=== PATIENT | female | born 1965 | race Hispanic/Latino ===

== ENCOUNTER 2016-04-29 14:04 | Emergency (ER) | payer OTHER ==
[~2016-04-29] VITALS: Ht 152.4 cm; Wt 63.5 kg
[~2016-04-29 14:04] MED LIST: ACET325T38 PO; CIPR-225 PO; CYCL10TA9 PO; DOCU100C37 PO; HYDR-3812 PO; HYDR-3816 PO; IBUP-1773 PO; IBUP800T26 PO; METR500T PO; PHEN-640 PO; SIME80TA16 PO
--- OUTSIDE RECORDS SUMMARY | 2016-04-29 14:10 | XMS REPORT | Continuity of Care Document ---
Author Author [facility] Organization [facility] Address Unknown Phone Unavailable Care Team Providers Care Medical Authorization Specialist Name Role Phone NO, LOCAL PHYSICIAN PCP Unavailable Insurance Providers Payer Name Policy Number Subscriber Name Relationship Self Pay Pending Bisi Apprv Anay Lau 18 Self / Same As Patient Advance Directives Directive Response Recorded Date/Time Advance Directives No 11/24/15 6:25am Health Care Power of Desk Interviewer No 11/24/15 6:25am Organ Donor Yes 11/24/15 6:25am Resuscitation Status Full Code 11/24/15 6:25am Problems Active Problems Medical Problem Onset Date Status Bacterial vaginosis Unknown Acute Cholelithiasis Unknown Acute Epigastric abdominal pain Unknown Acute Neck strain Unknown Acute Ovarian cyst Unknown Acute Pelvic pain Unknown Acute Urinary tract infection Unknown Acute Medications Current Home Medications Medication Dose Units Route Directions Days/Qty Instructions Start Date Ibuprofen 600 Mg 600 Mg Oral Every 6 Hours as needed for Pain 80 11/23 Hydrocodone/Acetaminophen 1 Each 1-2 Ea Oral Every 6 Hours as needed for Pain 50 11/24/15 Docusate Sodium 100 Mg 100 Mg Oral Twice A Day as needed for Constipation 40 11/24/15 Simethicone 80 Mg 40 Mg Oral Three Times A Day as needed for Indigestion 40 11/24/15 Past Home Medications Medication Directions Ordered Status Cyclobenzaprine Hcl (Flexeril) 10 Mg Tablet, 1 Each Oral Every 8HRS as needed for Spasms 06/06/14 Discontinued Ibuprofen (Motrin) 800 Mg Tablet, 800 Mg Oral Every 8 Hours as needed for Pain 06/06/14 Discontinued Acetaminophen 325 Mg Tablet, 325 Mg Oral As Needed 07/17/15 Discontinued Metronidazole 500 Mg Tablet, 500 Mg Oral Twice A Day 07/17/15 Discontinued Ciprofloxacin Hcl 500 Mg Tablet, 500 Mg Oral Twice A Day 07/17/15 Discontinued Hydrocodone/Acetaminophen 1 Each Tablet, 1 Each Oral Every 4HRS as needed for Pain 07/17/15 Discontinued Phenazopyridine Hcl 200 Mg Tablet, 1 Tab Oral Three Times A Day 07/17/15 Discontinued Social History Social History Problem Response Recorded Date/Time Alcohol Use Denies Use 07/17/2015 9:15am Recreational Drug Use No 07/17/2015 9:15am Recent Foreign Travel No 11/24/2015 6:25am Recent Infectious Disease Exposure No 11/24/2015 6:25am Smoking Status Never a Smoker 11/24/2015 6:25am Recent Hopitalizations No 11/24/2015 6:25am Query Response Start Date Stop Date Smoking Status Never a Smoker Hospital Discharge Instructions Patient Instructions Physician Instructions New, Converted or Re-Newed RX: RX on Chart Additional Follow Up: Yes Orders/Referrals Dr. June 7-10 days, and 8 weeks Activity: Activity as Tolerated Driving Instructions: No Driving for 1 Week NO SMOKING: NO SMOKING Nothing Inside Vagina: No Douching, No [place], No Tampons Discharge Diet: No Restrictions Symptoms to Report to : Bleeding Excessive, Pain Increased, Fever Over 101 Degrees F, Vaginal Bleeding Increase, Questions/Concerns For Any Problems or Questions: Contact Your Physician Infection Signs and Symptoms: Increased Redness, Foul Odor of Wound, Increased Drainage, Skin Itchy or Has a Rash, Increased Swelling, Temperature Above 101 F Operative Area Clean and Dry: Keep Incision Clean/Dry Stitches/[place]/Dermabond: Dermabond, Care of Stitches Bathing Instructions: Shower Plan of Care Discharge Date 11/25/15 11:15am Instructions/Education Provided Robot Assisted Laparoscopic Hysterectomy (DC) Prescriptions See Medication Section Functional Status Query Response Date Recorded Patient Orientation Person Place Time Situation Normal For Age November 25, 2015 12:30pm Comprehension Ability Understands Concepts November 25, 2015 9:00am Allergies, Adverse Reactions, Alerts No known allergies. Immunizations Name Given Type FLU TRIvalent 5 years - Adult 11/25/15 Administered Vital Signs Acute Vital Signs Vital Response Date/Time Temperature (Fahrenheit) 98.3 degrees F (97.6 - 99.5) 11/25/2015 11:15am Temperature (Calculated Celsius) 36.94997 degrees C (36.4 - 37.5) 11/25/2015 10:40am Temperature Source Tympanic 11/25/2015 11:15am Pulse Rate (adult) 52 bpm (60 - 90) 11/25/2015 11:15am Respiratory Rate 20 bpm (12 - 24) 11/25/2015 11:15am O2 Sat by Pulse Oximetry 98 % (88 - 100) 11/25/2015 11:15am Blood Pressure 103/60 mm Hg 11/25/2015 11:15am Blood Pressure Mean 74 mm Hg 11/25/2015 8:20am Pain Numeric Pain Scale 4 11/25/2015 11:15am Pain Intensity 1 11/25/2015 6:16am Height (Feet) 4 feet 11/24/2015 6:25am Height (Inches) 11.00 inches 11/24/2015 6:25am Height (Calculated Centimeters) 149.407761 cm 11/24/2015 6:25am Weight (Pounds) 144 pounds 11/24/2015 6:25am Weight (Ounces) 2.0 oz 11/24/2015 6:25am Weight (Calculated Grams) 57035.00 gm 11/24/2015 6:25am Weight (Calculated Kilograms) 65.467964 kilograms 11/24/2015 6:25am Calculated BMI 29.1 11/24/2015 6:25am Results Laboratory Results Test Name Result Units Flags Reference Collection Date/Time Result Date/ Time Comments White Blood Count 6.2 10^3/uL 4.3-11.0 11/24/2015 6:45am 11/24/2015 7: 01am Red Blood Count 4.74 10^6/uL 4.35-5.85 11/24/2015 6:45am 11/24/2015 7: 01am Hemoglobin 14.4 G/DL 11.5-16.0 11/24/2015 6:45am 11/24/2015 7:01am Hematocrit 41 % 35-52 11/24/2015 6:45am 11/24/2015 7:01am Mean Corpuscular Volume 87 FL 80-99 11/24/2015 6:45am 11/24/2015 7: 01am Mean Corpuscular Hemoglobin 30 PG 25-34 11/24/2015 6:45am 11/24/2015 7: 01am Mean Corpuscular Hemoglobin Concent 35 G/DL 32-36 11/24/2015 6:45am 07/2015 7:01am Red Cell Distribution Width 13.7 % 10.0-14.5 11/24/2015 6:45am 2015 7:01am Platelet Count 284 10^3/uL 130-400 11/24/2015 6:45am 11/24/2015 7:01am Mean Platelet Volume 9.9 FL 7.4-10.4 11/24/2015 6:45am 11/24/2015 7: 01am Neutrophils (%) (Auto) 48 % 42-75 11/24/2015 6:45am 11/24/2015 7:01am Lymphocytes (%) (Auto) 39 % 12-44 11/24/2015 6:45am 11/24/2015 7:01am Monocytes (%) (Auto) 9 % 0-12 11/24/2015 6:45am 11/24/2015 7:01am Eosinophils (%) (Auto) 4 % 0-10 11/24/2015 6:45am 11/24/2015 7:01am Basophils (%) (Auto) 1 % 0-10 11/24/2015 6:45am 11/24/2015 7:01am Neutrophils # (Auto) 3.0 X 10^3 1.8-7.8 11/24/2015 6:45am 11/24/2015 7: 01am Lymphocytes # (Auto) 2.4 X 10^3 1.0-4.0 11/24/2015 6:45am 11/24/2015 7: 01am Monocytes # (Auto) 0.6 X 10^3 0.0-1.0 11/24/2015 6:45am 11/24/2015 7: 01am Eosinophils # (Auto) 0.2 10^3/uL 0.0-0.3 11/24/2015 6:45am 11/24/2015 7 :01am Basophils # (Auto) 0.0 10^3/uL 0.0-0.1 11/24/2015 6:45am 11/24/2015 7: 01am Pending Laboratory Results Test Name Collection Date/Time Pending Microbiology Results Procedure Source Collection Date/Time Procedures Procedure Status Date Provider(s) Robot-assisted hysterectomy Completed 11/24/15 RAUL JUNE DO Encounters Encounter Location Arrival/Admit Date Discharge/Depart Date Attending Provider Registered [facility] 11/24/15 6:32am RAUL JUNE DO Departed Clinic [facility] 11/18/15 9:21am 11/18/15 10: 54am RAUL JUNE DO
[2016-04-29] MEDS ORDERED: LACTATED RINGERS 1,000 ML IV SCH (14:15)
[2016-04-29] MEDS ORDERED: fentaNYL INJECTION 100 MCG/2 ML AMP IVP ONE (14:15)
[2016-04-29] MEDS ORDERED: ONDANSETRON 4 MG/2 ML (SDV) Z0FRAN IVP ONE (14:15)
--- NOTE | 2016-04-29 14:16 | ED Cardiac General ---
History of Present Illness General Chief Complaint: Chest Pain Stated Complaint: CP Source: patient Exam Limitations: no limitations History of Present Illness Time seen by provider: 14:15 Initial Comments To ER with epigastric abdominal pain constant since yesterday. She has nausea but no vomiting. She has pain that is worsened with movement and deep breathing. No appetite and her last food intake was yesterday. Severity: moderate Activities at Onset: none NTG SL ADMISSIONS SPECIALIST: No ASA po ADMISSIONS SPECIALIST: No Associated Systoms: No Fever/Chills, Nausea/Vomiting Allergies and Home Medications Allergies Coded Allergies: No Known Drug Allergies (Unverified , 11/18/15) Home Medications Docusate Sodium 100 Mg Capsule #40 100 MG PO BID PRN PRN CONSTIPATION Prescribed by: RAUL CRESPO on 11/24/15 0956 Ibuprofen 600 Mg Tablet #80 600 MG PO Q6H PRN PRN PAIN Prescribed by: RAUL CRESPO on 11/24/15 0956 Ondansetron 8 Mg Tab.rapdis #10 8 MG PO Q6H PRN PRN NAUSEA/VOMITING Prescribed by: STUART GALEANO on 04/29/16 1459 Oxycodone HCl/Acetaminophen 1 Each Tablet #20 1 EACH PO Q6H PRN PRN PAIN Prescribed by: STUART GALEANO on 04/29/16 1459 Simethicone 80 Mg Tab.chew #40 40 MG PO TID PRN PRN INDIGESTION Prescribed by: RAUL CRESPO on 11/24/15 0956 Review of Systems Constitutional: see HPINo chills EENTM: No Symptoms Reported Respiratory: No Symptoms Reported Cardiovascular: No Symptoms Reported Gastrointestinal: See HPI Abdominal Pain NauseaDenies Vomiting Genitourinary: No Symptoms Reported Musculoskeletal: no symptoms reported Skin: no symptoms reported Psychiatric/Neurological: No Symptoms Reported Endocrine: No Symptoms Reported Hematologic/Lymphatic: No Symptoms Reported Past Acodbxr-Uzkvmv-Rejsmx Hx Patient Social History Recent Hopitalizations: No Seasonal Allergies Seasonal Allergies: No Surgeries HX Surgeries: Yes (HAD TUBAL LIGATION REVERSED D/T PAIN) Surgeries: Section, Hysterectomy Respiratory Hx Respiratory Disorders: No Cardiovascular Hx Cardiac Disorders: No Neurological Hx Neurological Disorders: No Reproductive System Hx Reproductive Disorders: Yes (AUB ) Female Reproductive Disorders: Ovarian Cyst MANAGER FILM History: Hysterectomy Genitourinary Hx Genitourinary Disorders: Yes Genitourinary Disorders: Bladder Infection Gastrointestinal Hx Gastrointestinal Disorders: Yes (GALLBLADDER STONE) Gastrointestinal Disorders: Chronic Constipation, Gall Bladder Disease Musculoskeletal Hx Musculoskeletal Disorders: No Endocrine Hx Endocrine Disorders: No HEENT HX ENT Disorders: No Loss of Vision: Denies Hearing Impairment: Denies Cancer Hx Cancer: No Psychosocial Hx Psychiatric Problems: No Integumentary HX Skin/Integumentary Disorder: No Blood Transfusions Hx Blood Disorders: Yes Adverse Reaction to a Blood Tr: No (N/A) Family Medical History Significant Family History: No Pertinent Family Hx Physical Exam Vital Signs Vital Sign - Last 12Hours 04/29/16 14:09 Temp 98.2 Pulse 60 Resp 18 B/P 185/88 Pulse Ox 97 O2 Delivery Room Air Capillary Refill : General Appearance: No Apparent Distress WD/WN HEENT: PERRL/EOMI TMs Normal Respiratory: No Accessory Muscle Use No Respiratory Distress Cardiovascular: Regular Rate, Rhythm Normal Peripheral Pulses Gastrointestinal: Normal Bowel Sounds Soft Tenderness (epigastric) Extremity: Normal Capillary Refill Normal Inspection Neurologic/Psychiatric: Alert Oriented x3 No Motor/Sensory Deficits Skin: Normal Color Warm/Dry Progress/Results/Core Measures Results/Orders Lab Results Laboratory Tests Test 04/29/16 14:22 Range/Units Alanine Aminotransferase (ALT/SGPT) 137 H 0-55 U/L Albumin 4.3 3.2-4.5 G/DL Alkaline Phosphatase 124 40-136 U/L Amylase Level 54 25-125 U/L Anion Gap 10 5-14 MMOL/L Aspartate Amino Transf (AST/SGOT) 86 H 5-34 U/L BUN/Creatinine Ratio 15 Basophils # (Auto) 0.1 0.0-0.1 10^3/uL Basophils (%) (Auto) 1 0-10 % Blood Urea Nitrogen 10 7-18 MG/DL Calcium Level 9.6 8.5-10.1 MG/DL Carbon Dioxide Level 26 21-32 MMOL/L Chloride Level 105 98-107 MMOL/L Creatinine 0.68 0.60-1.30 MG/DL Eosinophils # (Auto) 0.2 0.0-0.3 10^3/uL Eosinophils (%) (Auto) 3 0-10 % Estimat Glomerular Filtration Rate > 60 Glucose Level 192 H 70-105 MG/DL Hematocrit 40 35-52 % Hemoglobin 13.9 11.5-16.0 G/DL Lipase 24 8-78 U/L Lymphocytes # (Auto) 2.6 1.0-4.0 X 10^3 Lymphocytes (%) (Auto) 42 12-44 % Mean Corpuscular Hemoglobin 30 25-34 PG Mean Corpuscular Hemoglobin Concent 35 32-36 G/DL Mean Corpuscular Volume 86 80-99 FL Mean Platelet Volume 10.2 7.4-10.4 FL Monocytes # (Auto) 0.5 0.0-1.0 X 10^3 Monocytes (%) (Auto) 8 0-12 % Neutrophils # (Auto) 2.9 1.8-7.8 X 10^3 Neutrophils (%) (Auto) 46 42-75 % Platelet Count 294 130-400 10^3/uL Potassium Level 3.7 3.6-5.0 MMOL/L Red Blood Count 4.62 4.35-5.85 10^6/uL Red Cell Distribution Width 12.4 10.0-14.5 % Sodium Level 141 135-145 MMOL/L Total Bilirubin 1.2 H 0.1-1.0 MG/DL Total Protein 7.5 6.4-8.2 G/DL Troponin I < 0.30 <0.30 NG/ML White Blood Count 6.2 4.3-11.0 10^3/uL My Orders Orders-STUART GALEANO LINING IRONER Cbc With Automated Diff (04/29/16 14:13) Comprehensive Metabolic Panel (04/29/16 14:13) Lipase (04/29/16 14:13) Amylase (04/29/16 14:13) Ua Culture If Indicated (04/29/16 14:13) Saline Lock/Iv-Start (04/29/16 14:13) Fentanyl Injection (Sublimaze Injection (04/29/16 14:15) Ekg Tracing (04/29/16 14:13) Continuous Ekg Monitoring (04/29/16 14:13) Troponin I (04/29/16 14:13) Chest Pa/Lat (2 View) (04/29/16 14:13) Us Gallbladder [id number] (04/29/16 14:13) Lactated Ringers (Lr 1000 Ml Iv Solution (04/29/16 14:15) Ondansetron Injection (Zofran Injectio (04/29/16 14:15) Ketorolac Injection (Toradol Injection) (04/29/16 14:45) Hydromorphone Injection (Dilaudid Inject (04/29/16 15:00) Medications Given in ED Current Medications Medications Dose Ordered Sig/William Route Start Time Stop Time Status Last Admin Dose Admin Fentanyl Citrate 50 mcg ONCE ONCE IVP 04/29/16 14:15 04/29/16 14:16 DC 04/29/16 14:20 50 MCG Ketorolac Tromethamine 30 mg ONCE ONCE IVP 04/29/16 14:45 04/29/16 14:46 DC 04/29/16 15:08 30 MG Ondansetron HCl 4 mg ONCE ONCE IVP 04/29/16 14:15 04/29/16 14:16 DC 04/29/16 14:20 4 MG Vital Signs/I&O Vital Sign - Last 12Hours 04/29/16 14:09 Temp 98.2 Pulse 60 Resp 18 B/P 185/88 Pulse Ox 97 O2 Delivery Room Air Departure Communication Progress Notes 1457-I discussed the case with Dr. Garcia given the absence of white count, absence of fevers, absence of wall thickening and absence of pericholecystic fluid but with symptomatic cholelithiasis, pain medication nausea medication and follow-up in the outpatient setting will be recommended. Using the phone insurance salesperson line I discussed these plan with the patient and she agrees. Impression Impression: Primary Impression: Symptomatic cholelithiasis Disposition: 01 HOME, SELF-CARE Condition: Stable Departure-Patient Inst. Decision time for Depature: 14:57 Referrals: [facility] (PCP/Family) Primary Care Physician BABATUNDE GARCIA MD Patient Instructions: Gallstones, POSS GALLSTONE-W/BILIARY COLIC Add. Discharge Instructions: 1. Low fat diet with no milk products 2. Pain medication and nausea medication as needed 3. Return to ER for any fevers or worsening pain 4. Call Dr. Garcia tomorrow morning to make an appointment to be seen All discharge instructions reviewed with patient and/or family. Voiced understanding. Scripts Ondansetron (Zofran Odt)8 Mg Tab.rapdis8 Mg PO Q6H PRN NAUSEA/VOMITING #10 TAB Prov:STUART GALEANO LINING IRONER 04/29/16 Oxycodone HCl/Acetaminophen (Percocet 5-325 mg Tablet)1 Each Tablet1 Each PO Q6H PRN PAIN #20 TAB Prov:STUART GALEANO APRN 04/29/16 STUART GALEANO APRN Apr 29, 2016 14:16
[2016-04-29 14:27] LABS: BASOPHILS # (AUTO) 0.1 10^3/uL (0.0-0.1); BASOPHILS % (AUTO) 1 % (0-10); EOSINOPHILS # (AUTO) 0.2 10^3/uL (0.0-0.3); EOSINOPHILS % (AUTO) 3 % (0-10); LYMPHOCYTES # (AUTO) 2.6 X 10^3 (1.0-4.0); LYMPHOCYTES % (AUTO) 42 % (12-44); MEAN CORPUSCULAR HEMOGLOBIN 30 PG (25-34); MEAN CORPUSCULAR HGB CONC 35 G/DL (32-36); MEAN CORPUSCULAR VOLUME 86 FL (80-99); MEAN PLATELET VOLUME 10.2 FL (7.4-10.4); MONOCYTES # (AUTO) 0.5 X 10^3 (0.0-1.0); MONOCYTES % (AUTO) 8 % (0-12); NEUTROPHILS # (AUTO) 2.9 X 10^3 (1.8-7.8); NEUTROPHILS % (AUTO) 46 % (42-75); PLATELET COUNT 294 10^3/uL (130-400); RED BLOOD COUNT 4.62 10^6/uL (4.35-5.85); RED CELL DISTRIBUTION WIDTH 12.4 % (10.0-14.5); WHITE BLOOD COUNT 6.2 10^3/uL (4.3-11.0)
[2016-04-29] MEDS ORDERED: KETOROLAC 30 MG/ML VIAL IVP ONE (14:45)
[2016-04-29 14:47] LABS: ALANINE AMINOTRANSFERASE 137 U/L (0-55); ALBUMIN 4.3 G/DL (3.2-4.5); AMYLASE 54 U/L (25-125); ANION GAP 10 MMOL/L (5-14); ASPARTATE AMINO TRANSFERASE 86 U/L (5-34); BILIRUBIN,TOTAL 1.2 MG/DL (0.1-1.0); BLOOD UREA NITROGEN 10 MG/DL (7-18); BUN/CREATININE RATIO 15; CALCIUM 9.6 MG/DL (8.5-10.1); CARBON DIOXIDE 26 MMOL/L (21-32); CHLORIDE 105 MMOL/L (98-107); CREATININE SERUM 0.68 MG/DL (0.60-1.30); GFR ESTIMATED > 60; GLUCOSE 192 MG/DL (70-105); LIPASE 24 U/L (8-78); POTASSIUM 3.7 MMOL/L (3.6-5.0); SODIUM 141 MMOL/L (135-145); TOTAL PROTEIN 7.5 G/DL (6.4-8.2)
[2016-04-29 14:53] LABS: TROPONIN I < 0.30 NG/ML (<0.30)
[2016-04-29] MEDS ORDERED: ONDA8TAB9 PO (14:59)
[2016-04-29] MEDS ORDERED: OXYC-197 PO (14:59)
[2016-04-29] MEDS ORDERED: HYDROmorphone (DILAUDID) 2 MG/ML VIAL IVP PRN (15:00)
--- NOTE | 2016-04-29 15:16 | Diagnostic Imaging Report ---
INDICATION: Mid chest pain. EXAMINATION: Two-view chest, 04/29/2016. COMPARISONS: None. FINDINGS: The cardiomediastinal silhouette is unremarkable. The pulmonary vasculature is within normal limits. The lungs and pleural spaces are clear. IMPRESSION: No evidence of an acute cardiopulmonary process. Dictated by: Dictated on workstation # [id number]
[2016-04-29 15:25] VITALS: BP 164/79
--- NOTE | 2016-04-29 15:43 | Diagnostic Imaging Report ---
PROCEDURE: US Gallbladder. INDICATION: Right upper quadrant pain with chest pain. TECHNIQUE: Multiple grayscale sonographic images were obtained of the right upper quadrant of the abdomen. CORRELATION STUDY: None. FINDINGS: LIVER: The liver measures 18 cm. Diffusely increased echogenicity. GALLBLADDER: Multiple stones are present which appear to be mobile. The posterior wall is shadowed and obscured. Visualized wall does not appear to be abnormally thickened and there is no pericholecystic fluid. COMMON BILE DUCT: Obscured and not visualized. RIGHT KIDNEY: Measures 12 cm. No hydronephrosis. PANCREAS: Obscured by bowel gas. OTHER: None. IMPRESSION: 1. Multiple gallstones. Common bile duct unable to be visualized. Dictated by: Dictated on workstation # [id number]
== END 2016-04-29 15:27 | disposition home or self-care (01) ==
LOC: EDUNIT# 14:04 → ER 14:05
DX: K80.20 Calculus of gallbladder without cholecystitis without obstruction (principal)
CPT/HCPCS: 36415; 71020; 76705; 80053; 82150; 83690; 84484; 85025; 93005; 96361; 96374; 96375

== ENCOUNTER 2016-05-24 12:30 | Outpatient (CLI) | payer OTHER ==
[~2016-05-24] VITALS: Ht 152.4 cm; Wt 64.0 kg
[~2016-05-24 12:30] MED LIST changes: +ONDA8TAB9 PO; +OXYC-197 PO
[2016-05-24 12:50] VITALS: BP 142/77
== END 2016-05-24 13:00 | disposition home or self-care (01) ==
LOC: PREOP 12:30
PROVIDERS: ATTEND Surgery
DX: Z01.818 Encounter for other preprocedural examination (principal); K80.20 Calculus of gallbladder without cholecystitis without obstruction
CPT/HCPCS: 87081

== ENCOUNTER 2016-06-11 06:58 | Day surgery (SDC) | payer OTHER ==
[~2016-06-11] VITALS: Ht 152.4 cm; Wt 64.0 kg
[2016-06-11] MEDS ORDERED: ceFAZolin 1 GM/NS 50 ML IVPB IV ONE ×2 (07:30)
[2016-06-11] MEDS ORDERED: CATHETER FLUSH 10 ML SYR IV PRN (07:30)
[2016-06-11 07:46] VITALS: BP 140/82
[2016-06-11] MEDS ORDERED: SEVOFLURANE (ULTANE) 15 ML INHAL SOLN ONE (07:58)
[2016-06-11] MEDS ORDERED: MIDAZOLAM 2 MG/2 ML (VERSED) VIAL ONE (07:58)
[2016-06-11] MEDS ORDERED: LIDOCAINE PF 2% 10 ML (XYLOCAINE) AMP ONE (07:58)
[2016-06-11] MEDS ORDERED: proPOfol 200 MG/20 ML (DIPRIVAN) VIAL IV ONE (07:58)
[2016-06-11] MEDS ORDERED: fentaNYL INJECTION 250 MCG/5 ML AMP ONE (07:58)
[2016-06-11] MEDS ORDERED: ONDANSETRON 4 MG/2 ML (SDV) Z0FRAN ONE ×2 (07:59→09:47)
[2016-06-11] MEDS ORDERED: FLUMAZENIL (ROMAZICON) 0.1 MG/ML 5 ML VIAL ONE (07:59)
[2016-06-11] MEDS ORDERED: ROCURONIUM 50 MG/5 ML (ZEMURON) VIAL IV ONE (08:00)
[2016-06-11] MEDS: LACTATED RINGERS 1,000 ML IV PRN ×2 (08:30→10:24)
--- NOTE | 2016-06-11 08:48 | Progress Note-Pre Operative ---
Pre-Operative Progress Note H&P Reviewed The H&P was reviewed, patient examined and no changes noted. Date H&P Reviewed: Jun 11, 2016 Time H&P Reviewed: 08:48 Pre-Operative Diagnosis: symptomatic cholelithiasis CRESCENCIO CHOW DO Jun 11, 2016 8:48 am
[2016-06-11] MEDS ORDERED: LIDOCAINE 1% INJ 20 ML (XYLOCAINE) VIAL ONE (08:58)
[2016-06-11] MEDS ORDERED: BUPIVACAINE 0.5% 30 ML (SENSORCAINE) VIAL ONE (08:58)
[2016-06-11] MEDS ORDERED: DOCU-143 PO (09:47)
[2016-06-11] MEDS ORDERED: HYDR-3812 PO (09:47)
[2016-06-11] MEDS ORDERED: NEOSTIGMINE (BLOXIVERZ ) 1 MG/1ML 10 ML VIAL ONE (09:47)
[2016-06-11] MEDS ORDERED: GLYCOPYRROLATE 0.2 MG/ML (ROBINUL) 2 ML VIAL ONE (09:47)
[2016-06-11] MEDS ORDERED: DEXAMETHASONE PF 10 MG/ML (DECADRON) VIAL ONE (09:47)
--- NOTE | 2016-06-11 09:48 | Discharge Inst-Simple/Standard ---
Discharge Inst-Standard Discharge Medications New, Converted or Re-Newed RX: RX on Chart Patient Instructions/Follow Up Plan of Care/Instructions/FU: Follow up with Dr. Jackson in 2 weeks. Follow up with PCP in 1 week Take medication as directed. Activity as Tolerated: No Discharge Diet: No Restrictions Other Inst to Patient Follow up Appt: Make appointment for 2 weeks. Instructions: No lifting greater than 10 pounds. No strenuous activity. May shower in 24 hours, no tub bath or soaking. Use incentive spirometer at home as directed. No Smoking Skin/Wound Care: May remove bandages. You need to leave the white strips over incision on they will fall off on their own. Symptoms to Report: Appetite Changes, Extremity Discoloration, Numbness/Tingling, Swelling Increased , Bleeding Excessive, Eyesight Changes, Pain Increased, Urine Color Change, Constipation(Persistent), Fever over 101 degree F, Pain/Pressure in chest, Urinating Difficulty, Cough Up/Vomit Blood, Heart Beat Irreg/Pounding, Pain/ Pressure in jaw, Vaginal Bleeding Increase, Cramps in feet or legs, Lightheadedness, Pain/Pressure in shoulder, Diarrhea(Persistent), Memory Changes Suddenly, Questions/Concerns, Weight gain consecutive days, Dizziness/ Fainting, Nausea/Vomiting, Shortness of Breath, Weight gain over 2 pounds. If eyes or skin turn yellow notify physician. If questions or concerns contact your physician Or seek help at emergency department. YARIEL HORN APRN Jun 11, 2016 09:48
--- NOTE | 2016-06-11 10:25 | Progress Note-Post Operative ---
Post-Operative Progess Note Surgeon (s)/Boat Hoist Operator (s) Surgeon CRESCENCIO CHOW DO Boat Hoist Operator: Dr. Valdez Pre-Operative Diagnosis symptomatic cholelithiasis Post-Operative Diagnosis same Post-Op Procedure Note Date of Procedure: Jun 11, 2016 Name of Procedure Performed: lap roberth ioc Description of the Procedure: see note Findings of the Procedure see note Anesthesia Type general Estimated blood loss (mL): minimal Specimen(s) collected/removed gallbladder CRESCENCIO CHOW DO Jun 11, 2016 10:25 am
[2016-06-11] MEDS ORDERED: ONDANSETRON 4 MG/2 ML (SDV) Z0FRAN IVP PRN (10:45)
[2016-06-11] MEDS ORDERED: morphine INJ 10 MG/ML 1ML (SYR OR VIAL) ONE (10:49)
--- NOTE | 2016-06-11 10:57 | Diagnostic Imaging Report ---
Indication: Right upper quadrant pain. Discussion: Fluoroscopic support was provided during intraoperative cholangiogram. The common bile duct is normal in caliber with normal progression of contrast into the duodenum. Please see the operative report for full detail. Fluoroscopy time: 34 seconds. Impression: 1. Intraoperative cholangiogram. Dictated by: Dictated on workstation # [id number]
[2016-06-11] MEDS: morphine INJ 10 MG/ML 1ML (SYR OR VIAL) IVP PRN ×2 (11:03→11:08)
[2016-06-11 11:35] VITALS: BP 149/89
[2016-06-11] MEDS ORDERED: HYDROcodone/APAP 5 MG/325 MG (LORTAB) TAB PO ONE (12:00)
[2016-06-11 12:05] VITALS: BP 160/87
[2016-06-11 12:35] VITALS: BP 148/84
--- NOTE | 2016-06-11 16:41 | OPERATIVE REPORT ---
DATE OF SERVICE: 06/11/2016 PREOPERATIVE DIAGNOSIS: Symptomatic cholelithiasis. POSTOPERATIVE DIAGNOSIS: Symptomatic cholelithiasis. PROCEDURE: Laparoscopic cholecystectomy with intraoperative cholangiogram. SURGEON: Crescencio Jackson MD CLINICAL TRIALS ASSISTANT: Dr. Valdez assisted in retraction, dissection and closure. ANESTHESIA: General. ESTIMATED BLOOD LOSS: Minimal. COMPLICATIONS: None. INDICATIONS: The patient is a 51-year-old female who has been having abdominal pain and ultrasound demonstrating cholelithiasis. Symptoms are consistent with symptomatic cholelithiasis. The patient understands the risks and benefits of the procedure and wished to proceed with the procedure. Consent was signed and in chart. PROCEDURE: The patient was taken to the operating suite where she was prepped and draped in sterile fashion. Surgical pause was performed. Local anesthetic was infiltrated at the incision before with 0.5% Marcaine and 1% Xylocaine in a 50:50 ratio. Local anesthetic was infiltrated which is above the umbilicus, a 12-mm incision was made. Dissection was taken down to the fascia which was then scored and grasped with Kochers and then the abdomen was entered. A ballon trocar was then inserted. A pneumoperitoneum was achieved. Under direct visualization the laparoscope with 5 mm trocar was placed in the subxiphoid region and two 5 mm trocars were placed in the right upper quadrant. The gallbladder was then grasped and elevated. The cystic duct was then dissected out. Clips were placed on the distal portion and scissors were used to partially transect it and an ARROW catheter was then inserted into the duct and cholangiogram was performed, balloon causing obstruction of the common bile duct. Therefore, it was let down. Clip was held in place. Contrast made its way into the duodenum. There were no filling defects noted. The clip was then removed. The catheter was removed. Clips were placed on the proximal portion of the cystic duct and then completely transected. The cystic artery was then dissected out. Clips were placed in the proximal distal portion and this had a posterior branch as well which was dissected out and clips were placed in proximal portion and these were then transected. Hook cautery was used to dissect the gallbladder from the gallbladder fossa achieving hemostasis. Once the gallbladder was removed, it was placed in an Endobag through the 12 mm trocar site. The abdomen was then irrigated with copious amounts of irrigation. Hemostasis had been achieved. The area was then washed and dried. The skin was then closed using 4-0 Vicryl in a subcuticular fashion. Dermabond was placed over incisions. The patient tolerated the procedure well without any complications and was taken to the recovery room in stable condition. Job ID: [id number] DocumentID: [id number] Dictated Date: 06/11/2016 10:26:46 Snuff Grinder And Screener Date: 06/11/2016 10:58:02 Dictated By: CRESCENCIO JACKSON DO
== END 2016-06-11 13:35 | disposition home or self-care (01) ==
LOC: SDC 06:58
PROVIDERS: ATTEND Surgery
DX: K80.20 Calculus of gallbladder without cholecystitis without obstruction (principal)
CPT/HCPCS: 88304; 94664

== ENCOUNTER 2019-04-10 11:28 | Outpatient (CLI) | payer OTHER ==
[~2019-04-10] VITALS: Ht 145 cm; Wt 63.0 kg
[~2019-04-10 11:28] MED LIST changes: +ACHD5005 PO; +DOCU-143 PO; +HYDR-34 PO; -HYDR-3812 PO; -HYDR-3816 PO; -OXYC-197 PO; +OXYC1TAB87 PO
[2019-04-13] MEDS ORDERED: ACHD5005 PO (11:59)
== END 2019-04-10 11:42 | disposition home or self-care (01) ==
LOC: PREOP 11:28
PROVIDERS: ATTEND Podiatrist Foot & Ankle Surgery
DX: Z01.818 Encounter for other preprocedural examination (principal)

== ENCOUNTER → 2019-07-14 | Outpatient (CLI) | payer OTHER ==
--- NOTE | 2019-07-14 11:10 | Diagnostic Imaging Report ---
PROCEDURE: MR imaging left lower extremity without contrast. TECHNIQUE: Multiplanar, multisequence non contrast enhanced MR imaging of the left lower extremity was accomplished. INDICATION: Medial and forefoot pain. Previous surgery to the great toe and metatarsal area. Pain is all over the forefoot at this time. EXAMINATION: MRI of the left lower extremity without contrast 07/14/2019 FINDINGS: There is mild edema within the cuboid likely degenerative in nature. A fracture line is not seen. Minimal minimal scattered areas of edema noted at the 1st metatarsophalangeal joint and in the 1st interphalangeal joint space likely on a degenerative nature as well. No acute fractures. Scattered adjacent edema within the soft tissues is minimal and could be reactive. There are no significant joint effusions. No acute fractures are appreciated. The remaining visualized osseous structures are grossly intact. The visualized aspects of the ankle demonstrate no discontinuity or acute process within the tendons themselves. There is some fluid tracking along the posterior tibial tendon and the flexor digitorum longus tendon with the tendons themselves unremarkable. Findings may be due to mild synovitis. Visualized ankle ligaments grossly unremarkable. IMPRESSION: 1. Nonspecific scattered areas of osseous edema likely on a degenerative basis with no acute osseous findings. 2. Visualized tendons intact. Mild synovitis along the course of the posterior tibial tendon and the flexor digitorum longus tendon possible. Tendons themselves unremarkable. Dictated by: Dictated on workstation # [id number]
== END ==
LOC: RAD 08:00
PROVIDERS: ATTEND Podiatrist Foot & Ankle Surgery
DX: M65.862 Other synovitis and tenosynovitis, left lower leg (principal); R60.0 Localized edema

== ENCOUNTER → 2020-06-30 | Outpatient (CLI) | payer OTHER ==
[~2020-06-30] MED LIST changes: +LIDOCAINE 1% INJ 20 ML 20 ML VIAL INJ ONE
--- NOTE | 2020-06-30 14:43 | Diagnostic Imaging Report ---
INDICATION: Left breast calcification. Patient presents for stereotactic biopsy. Patient brought to the stereotatic suite placed in chair in sitting upright position. The left breast was positioned mediolateral. The calcification in the slightly medial inferior anterior left breast were stereotactically targeted. Medial left breast was prepped and draped in usual sterile fashion. Small amount of 1% lidocaine was utilized for local anesthesia. A 8 gauge needle was advanced in place to the left breast per Stereotactic coordinates. 4 core samples were obtained with vacuum-assisted device. Specimen radiograph demonstrates numerous calcifications within sample labeled #2. A clip was deployed. Needle was removed and hemostasis was obtained using manual compression. All images were viewed on dedicated workstation. Postprocedure mammogram demonstrates a few residual calcifications in the medial retroareolar left breast. The marker clip is not visualized and was likely pulled out with needle removal. IMPRESSION: Serotactic biopsy of left breast calcification as described. Pathology results are currently pending. Dictated by: Dictated on workstation # [id number]
== END ==
LOC: RAD 09:12
PROVIDERS: ATTEND Surgery
DX: N63.20 Unspecified lump in the left breast, unspecified quadrant (principal); R92.1 Mammographic calcification found on diagnostic imaging of breast
CPT/HCPCS: 19081; 82947; A4648